=== PATIENT | male | born 1985 | race Caucasian/White ===

== ENCOUNTER 2016-07-13 20:22 | Emergency (ER) | payer BC ==
[~2016-07-13] VITALS: Ht 177.8 cm; Wt 81.6 kg
[2016-07-13 20:22] VITALS: BP 153/91; PULSE 94; RESP 20; TEMP 97.7; O2SAT 97
--- NOTE | 2016-07-13 20:22 | NUR ---
Patient to ER bed 8 to gown for evaluation. Side rails up. Report given to BRENDA CULP.
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
[2016-07-13] MEDS ORDERED: IBUPROFEN 800 MG TABLET PO ONE (20:45)
[2016-07-13] MEDS ORDERED: LIDOCAINE 1% 10 MG/ML, 20 ML MDV INJ ONE (21:00)
--- NOTE | 2016-07-13 21:00 | NUR ---
Dr Ly at bedside examining patient
[2016-07-13 21:59] VITALS: BP 148/91; PULSE 94; RESP 20; TEMP 97.7; O2SAT 97
--- NOTE | 2016-07-13 22:05 | NUR ---
Patient given written and verbal discharge instructions and verbalizes understanding. ER MD discussed with patient the results and treatment provided. Patient in stable condition. ID arm band removed. Rx of Motrin given. Patient educated on pain management and to follow up with PMD. Pain Scale 0/10. Opportunity for questions provided and answered.
== END 2016-07-13 21:59 | disposition home or self-care (01) ==
LOC: SED 20:22
DX: S63.105A Unspecified dislocation of left thumb, initial encounter (principal); R03.0 Elevated blood-pressure reading, without diagnosis of hypertension; V27.4XXA Motorcycle driver injured in collision with fixed or stationary object in traffic accident, initial encounter; Y93.89 Activity, other specified; Y92.488 Other paved roadways as the place of occurrence of the external cause; Y99.8 Other external cause status
CPT/HCPCS: 26742; 73130; 99284; J2001